=== PATIENT | female | born 1960 | race Hispanic/Latino ===

== ENCOUNTER → 2018-12-18 | Day surgery (SDC) | payer OTHER ==
[~2018-12-18] MED LIST: ALENDRONATE SOD70 MG PO; MIDAZOLAM HCL 2 MG/2 ML VIAL ONE; PROPOFOL IV EMULSION 10 MG/ML 20 ML VIAL ONE; SIMVASTATIN20 MG PO; VITAMIN D1000 UNI1 PO
--- OUTSIDE RECORDS SUMMARY | 2018-12-18 05:59 | XMS REPORT ---
[facility] Address Unknown Phone Unavailable Care Team Providers Care Titrator Name Role Phone Unavailable Unavailable Problems This patient has no known problems. Allergies, Adverse Reactions, Alerts This patient has no known allergies or adverse reactions. Medications This patient has no known medications. Encounters Start Date/Time End Date/Time Encounter Type Admission Type Attending [facility] Facility Care Department Encounter ID 2018-05-06 12:07:20 2018-05-06 12:07:20 Outpatient [facility] [id number] 2018-04-24 00:00:00 2018-04-24 00:00:00 Outpatient [facility] [id number] 2018-04-21 08:40:49 2018-04-21 08:40:49 Outpatient [facility] [id number] 2018-04-21 07:51:04 2018-04-21 07:51:04 Outpatient [facility] [id number] 2018-01-17 07:40:07 2018-01-17 07:40:07 Outpatient [facility] [id number] 2017-12-18 08:45:40 2017-12-18 08:45:40 Outpatient [facility] [id number] 2017-12-18 07:48:03 2017-12-18 07:48:03 Outpatient [facility] [id number] 2017-06-26 08:34:15 2017-06-26 08:34:15 Outpatient [facility] [id number] 2017-05-28 07:47:09 2017-05-28 07:47:09 Outpatient [facility] [id number] 2017-05-17 14:07:25 2017-05-17 14:07:25 Outpatient [facility] [id number] 2017-03-28 09:13:23 2017-03-28 09:13:23 Outpatient [facility] [id number]
--- OUTSIDE RECORDS SUMMARY | 2018-12-18 05:59 | XMS REPORT | Clinical Summary ---
Author Author [facility] Organization [facility] Address Unknown Phone Unavailable Care Team Providers Care Admissions Consultant Name Role Phone Chance Garcia MD PCP Allergies Comments Active Allergy Reactions Severity Noted Date Rash and hives Sulfamethoxazole-Trimetho 11/04/2012 prim dizziness Codeine 04/25/2015 dizziness Gabapentin 04/25/2015 Medications End Date Status Medication Sig Dispensed Refills Start Date Active meclizine (ANTIVERT) 25 Take 1 tablet 30 tablet 1 mg TabIndications: by mouth 3 8 Vertigo times daily as needed (dizziness). Active simvastatin (ZOCOR) 20 mg Take 1 tablet 90 tablet 1 tabletIndications: by mouth at 8 Hyperlipidemia, bedtime unspecified nightly For hyperlipidemia type cholesterol. 12/18/2017 Discontinued simvastatin (ZOCOR) 20 mg Take 1 tablet 90 tablet 1 tabletIndications: by mouth at 7 Hyperlipidemia, bedtime unspecified nightly For hyperlipidemia type cholesterol. 12/18/2017 Discontinued meclizine (ANTIVERT) 25 Take 1 tablet 30 tablet 0 mg TabIndications: by mouth 3 7 Vertigo times daily as needed (dizziness). 04/21/2018 Discontinued simvastatin (ZOCOR) 20 mg Take 1 tablet 90 tablet 1 tabletIndications: by mouth at 8 Hyperlipidemia, bedtime unspecified nightly For hyperlipidemia type cholesterol. 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 Breast lump on left side at 11 o'clock position 11/08/2015 Breast lump on left side at 6 o'clock position 11/08/2015 Vitamin D deficiency 06/28/2015 Menopause 11/06/2010 Vertigo 07/05/2010 Tinnitus 07/05/2010 Uterine leiomyoma - fibroids 01/13/2008 Anemia, unspecified 10/14/2007 Hyperlipidemia Encounters Care Team Description Date Type Specialty Chance Garcia III, MD Hyperlipidemia, unspecified hyperlipidemia type (Primary Dx); Vertigo; Preventative health care 04/21/2018 Office Visit Family Practice Chance Garcia III, MD Preventative health care 01/17/2018 Ancillary Radiology Procedure Francisco Vitale MD Porter, Thomas W III, MD Preventative health care (Primary Dx); Hyperlipidemia, unspecified hyperlipidemia type; Vertigo 12/18/2017 Office Visit Family Practice after 12/17/2017 Immunizations Name Dates Previously Given Next Due Influenza Vaccine 06/28/2015, 06/02/2014, 06/19/2013, 06/27/2010, 05/31/2008 Influenza Vaccine, 06/26/2017 (Deferred: Patient Refused) Seasonal, Injectable Td Tetanus, diphtheria 04/03/2002 Toxoids Vaccine Tdap Tetanus, diphtheria, 06/02/2014 acellular pertussis Vaccine Family History Medical History Relation Name Comments Arthritis Mother Hypertension Mother Pulmonary Mother Relation Name Status Comments Brother Alive x3 Father (Age ?) Mother Alive Social History Date Tobacco Use Types Packs/Day Years Used Never Smoker Smokeless Tobacco: Never Used Tobacco Cessation: Counseling Given: No Alcohol Use Drinks/Week oz/Week Comments No Sex Assigned at Date Recorded Not on file Industry Job Start Date Occupation Not on file Not on file Not on file Travel End Travel History Travel Start No recent travel history available. Last Filed Vital Signs Time Taken Vital Sign Reading 04/21/2018 7:52 AM CDT Blood Pressure 121/78 04/21/2018 7:52 AM CDT Pulse 68 04/21/2018 7:52 AM CDT Temperature 37.1 C (98.7 F) 04/21/2018 7:52 AM CDT Respiratory Rate 16 - Oxygen Saturation - - Inhaled Oxygen - Concentration 04/21/2018 7:52 AM CDT Weight 78.5 kg (173 lb) 04/21/2018 7:52 AM CDT Height 152.4 cm (5') 04/21/2018 7:52 AM CDT Body Mass Index 33.79 Plan of Treatment Health Maintenance Due Date Last Done Comments Breast Cancer Scrn 01/17/2019 01/17/2018, 12/17/2016, 04/25/2015, (Yearly) Additional history exists Colorectal Cancer Scrn 01/17/2019 01/17/2018, 12/17/2016, 09/26/2007, Annual (FIT/FOBT) Age 51 Additional history exists to 76 Cervical Cancer Scrn (3 01/25/2019 01/26/2016, 11/03/2015, 10/24/2012, Yrs) Additional history exists Procedures Comments Procedure Name Priority Date/Time Associated Diagnosis H. PYLORI STOOL AG Routine 05/06/2018 Preventative health care 12:09 PM CDT HEMOGLOBIN A1C Routine 04/21/2018 Preventative health care 8:36 AM CDT GLUCOSE Routine 04/21/2018 Preventative health care 8:36 AM CDT ALT/AST Routine 04/21/2018 Hyperlipidemia, 8:36 AM CDT unspecified hyperlipidemia type LIPID PROFILE Routine 04/21/2018 Hyperlipidemia, 8:36 AM CDT unspecified hyperlipidemia type OCCULT BLOOD ICT Routine 01/17/2018 Preventative health care 4:00 PM CDT MAMMOGRAM BILAT SCREEN Routine 01/17/2018 Preventative health care DIGITAL 8:36 AM CDT HEPATITIS PANEL Routine 12/18/2017 Hyperlipidemia, 8:41 AM CDT unspecified hyperlipidemia type HIV-1/HIV-2 ROUTINE Routine 12/18/2017 Hyperlipidemia, SCREENING 8:41 AM CDT unspecified hyperlipidemia type LIVER PROFILE Routine 12/18/2017 Hyperlipidemia, 8:41 AM CDT unspecified hyperlipidemia type UREA NITROGEN/CREA Routine 12/18/2017 Hyperlipidemia, 8:41 AM CDT unspecified hyperlipidemia type LIPID PROFILE Routine 12/18/2017 Hyperlipidemia, 8:41 AM CDT unspecified hyperlipidemia type CBC/DIFF Routine 12/18/2017 Hyperlipidemia, 8:41 AM CDT unspecified hyperlipidemia type GLUCOSE Routine 12/18/2017 Hyperlipidemia, 8:41 AM CDT unspecified hyperlipidemia type ELECTROLYTES Routine 12/18/2017 Hyperlipidemia, 8:41 AM CDT unspecified hyperlipidemia type after 12/17/2017 Results * H. PYLORI STOOL AG (05/06/2018 12:09 PM CDT) H pylori Ag Negative LABORATORY Stool Reference range: Negative [facility] Specimen Stool Performing Organization Address City/[facility] Phone Number [facility] [address] [place] [address] HUSSEIN 145 * HEMOGLOBIN A1C (04/21/2018 8:36 AM CDT) Hemoglobin A1c 5.8 4.3 - 6.1 % [facility] IMMUNOLOGY Est Average 119.8 mg/dL BT [facility] Gluc IMMUNOLOGY Specimen Blood Performing Organization Address [facility] Phone Number [facility] IMMUNOLOGY * LIPID PROFILE (04/21/2018 8:36 AM CDT) Only the most recent of 2 results within the time period is included. Cholesterol 139 mg/dL BT [facility]IN[facility]ST[facility] Comment: 1 REFERENCE RANGE: Desirable: <200 mg/dL Borderline: 200-240 mg/dL High Risk: >240 mg/dL Triglyceride 98 <150 mg/dL BT [facility]ATION Comment: 1 REFERENCE RANGE: Normal: <150 mg/dL Borderline High: 150-199 mg/dL High: 200-499 mg/dL Very High: >lw=683 mg/dL HDL 46 mg/dL BT [facility] Comment: 1 Increased CHD risk: <40 mg/dL Decreased CHD risk: >60 mg/dL LDL 73 mg/dL BT [facility]ATION Comment: 1 REFERENCE RANGE: Optimal: <100 mg/dL Near Optimal: 100-129 mg/dL Borderline High: 130-159 mg/dL High: 160-189 mg/dL Very High: >xg=867 mg/dL Specimen Blood Performing Organization Address [facility] Phone Number [facility] 1 * GLUCOSE (04/21/2018 8:36 AM CDT) Only the most recent of 2 results within the time period is included. Glucose 88 70 - 110 mg/dL BT MAIN-STATION 1 Specimen Blood Performing Organization Address [facility] Phone Number [facility] 1 * ALT/AST (04/21/2018 8:36 AM CDT) ALT 16 7 - 52 U/L BT MAIN[facility]ATION 1 AST 16 13 - 39 U/L BT MA[facility] 1 Specimen Blood Performing Organization Address City/[facility]/Zipcode Phone Number [facility] 1 * OCCULT BLOOD ICT (01/17/2018 4:00 PM CDT) Occult Blood Negative [facility] ICT Specimen Stool Performing Organization Address City/State/Zipcode Phone Number [facility] * MAMMOGRAM BILAT SCREEN DIGITAL (01/17/2018 8:36 AM CDT) Impressions Performed At IMPRESSION: BENIGN SMS There is no mammographic evidence of malignancy. A 1 year screening mammogram is recommended. This document has been electronically signed. Catalina Pederson M.D. apb/penrad:01/17/2018 09:22:05 Senior Abap Developer: Ms. Charito Bolaños RT(R)(M), [facility] letter sent: Benign Exam Mammogram BI-RADS: 2 Benign G0202 Z12.31 Narrative Performed At #[id number] - MAMMOGRAM BILAT SCREEN DIGITAL SMS BILATERAL DIGITAL SCREENING MAMMOGRAM WITH CAD: 01/17/2018 CLINICAL: Screening for malignancy. Comparison is made to exams dated:12/17/2016 [facility], 11/09/2015, 11/09/2015 [facility], 04/25/2015, 01/29/2014, and 12/19/2012 [facility]. The tissue of both breasts is predominately fatty. Current study was also evaluated with a Computer Aided Detection (CAD) system. There is a benign intramammary node in the right breast. No significant masses, calcifications, or other findings are seen in either breast. There has been no significant interval change. Procedure Note Interface, Rad/Mammog In - 01/17/2018 10:39 AM CDT #[id number] - MAMMOGRAM BILAT SCREEN DIGITAL BILATERAL DIGITAL SCREENING MAMMOGRAM WITH CAD: 01/17/2018 CLINICAL: Screening for malignancy. Comparison is made to exams dated: 12/17/2016 [facility], 11/09/2015, 11/09/2015 [facility] [place], 04/25/2015, 01/29/2014, and 12/19/2012 [facility]. The tissue of both breasts is predominately fatty. Current study was also evaluated with a Computer Aided Detection (CAD) system. There is a benign intramammary node in the right breast. No significant masses, calcifications, or other findings are seen in either breast. There has been no significant interval change. IMPRESSION IMPRESSION: BENIGN There is no mammographic evidence of malignancy. A 1 year screening mammogram is recommended. This document has been electronically signed. Catalina yeboah/ciaran:01/17/2018 09:22:05 Senior Abap Developer: Ms. Charito Bolaños RT(R)(M), [facility] letter sent: Benign Exam Mammogram BI-RADS: 2 Benign G0202 Z12.31 Performing Organization Address City/[facility] Phone Number SMS * HIV-1/HIV-2 ROUTINE SCREENING (12/18/2017 8:41 AM CDT) HIV-1/HIV-2 Negative NEG BT MAIN-STATION 4 Performing Organization Address City/[facility] Phone Number [facility] 4 * ELECTROLYTES (12/18/2017 8:41 AM CDT) Sodium 142 136 - 145 mmol/L BT MAIN-STATION 1 Potassium 4.4 3.5 - 5.1 mmol/L BT [facility]ATION 1 Chloride 104 98 - 107 mmol/L BT [facility] 1 CO2 29 21 - 31 mmol/L BT [facility] 1 Anion Gap 9 BT MAIN[facility]ATION 1 Specimen Blood Performing Organization Address [facility] Phone Number [facility] 1 * LIVER PROFILE (12/18/2017 8:41 AM CDT) T Protein 7.0 6.0 - 8.3 g/dL BT [facility] 1 Albumin 4.6 3.7 - 5.3 g/dL BT [facility] 1 T Bilirubin 0.5 0.2 - 1.2 mg/dL BT MAIN[facility]ATION 1 Alk Phos 72 34 - 104 U/L BT MAIN[facility]ATION 1 AST 19 13 - 39 U/L BT MA[facility]ATION 1 ALT 20 7 - 52 U/L BT [facility] 1 D Bilirubin 0.1 0.0 - 0.2 mg/dL BT MAIN[facility]ATION 1 Specimen Blood Performing Organization Address [facility] Phone Number [facility] 1 * HEPATITIS PANEL (12/18/2017 8:41 AM CDT) HCV IgG Negative NEG BT MAIN-STATION 4 HBsAg Negative NEG BT MAIN-STATION 4 HAV, IgM Negative NEG BT MAIN-STATION 4 HBcAb, IgM Negative NEG BT MAIN-STATION 4 Specimen Blood Performing Organization Address [facility] Phone Number [facility] 4 * CBC/DIFF (12/18/2017 8:41 AM CDT) WBC 6.2 4.5 - 11.0 K/uL BT MAIN-STATION 2 RBC 4.61 4.20 - 5.40 M/uL BT MAIN[facility]STATION 2 Hemoglobin 13.1 12.0 - 16.0 g/dL BT MAIN[facility] 2 Hematocrit 41.2 37.0 - 47.0 % BT MAIN[facility] 2 MCV 89 82 - 92 fL BT MAIN[facility]ATION 2 MCH 28.4 27.0 - 32.0 pg BT MAIN-STATION 2 MCHC 31.8 (L) 32.0 - 36.0 g/dL BT MA[facility] 2 RDW 42.6 36.4 - 46.3 fL BT MA[facility] 2 Platelet 218 150 - 400 K/uL BT MAIN[facility]ATION 2 Mean Platelet 11.6 9.4 - 12.4 fL BT [facility] Volume 2 Percent NRBC 0.0 BT MAIN-STATION 2 Absolute NRBC 0.00 BT MAIN-STATION 2 Neutrophil 64.8 34.0 - 70.0 % BT MAIN[facility] 2 Lymphocyte 28.2 20.0 - 50.0 % BT MAIN[facility]ATION 2 Monocyte 5.2 5.0 - 12.0 % BT MAIN-STATION 2 Eosinophil 1.0 0.7 - 5.0 % BT MAIN-[facility] 2 Basophil 0.6 0.1 - 1.2 % BT MAIN-STATION 2 Pct Immat Gran 0.2 0.0 - 0.5 BT MAIN-STATION 2 Neutrophil, Abs 4.01 1.56 - 6.13 K/uL BT MAIN-STATION 2 Lymphocyte, Abs 1.74 1.18 - 3.74 K/uL BT MAIN-STATION 2 Monocyte, Abs 0.32 0.24 - 0.36 K/uL BT MAIN-STATION 2 Eosinophil, Abs 0.06 0.04 - 0.36 K/uL BT MAIN-STATION 2 Basophil, Abs 0.04 0.01 - 0.08 K/uL BT MAIN-STATION 2 Absol Immat 0.01 0.00 - 0.03 K/uL BT MAIN-STATION Gran 2 Specimen Blood Performing Organization Address City/State/Zipcode Phone Number [facility] 2 * UREA NITROGEN/CREA (12/18/2017 8:41 AM CDT) Urea Nitrogen 9 7 - 25 mg/dL BT [facility] 1 Creatinine 0.80 0.6 - 1.2 mg/dL BT [facility] 1 GFR, Estimated >60 mL/min/1.73 m2 BT MAIN-STATION 1 GFR, Estim, >60 mL/min/1.73 m2 BT [facility]ATION Afr-Am 1 Specimen Other (Specify in Comments) Performing Organization Address City/State/Zipcode Phone Number [facility] 1 after 12/17/2017 Insurance Type Payer Benefit Subscriber ID Effective Phone Address Plan / Dates Group [employer] xxxxxxxxxx 2017-P [phone] [address] [facility] [address] [place] [address]
[2018-12-18 09:30] VITALS: BP 108/82
== END | disposition home or self-care (01) ==
LOC: OR 05:55
PROVIDERS: ATTEND Internal Medicine Gastroenterology
DX: Z12.11 Encounter for screening for malignant neoplasm of colon (principal); Z71.3 Dietary counseling and surveillance; E66.9 Obesity, unspecified; Z88.6 Allergy status to analgesic agent; Z01.810 Encounter for preprocedural cardiovascular examination; Z68.34 Body mass index [BMI] 34.0-34.9, adult
CPT/HCPCS: 45378; 93005; J2250

== ENCOUNTER → 2024-03-05 | Day surgery (SDC) | payer OTHER ==
[~2024-03-05] MED LIST changes: +HYDROCHLOROTHIA25 MG PO; +LIDOCAINE HCL 2% LOCAL INJ 5 ML SDV VIAL INJ ONE; +LIPITOR10 MG PO; +MECLIZINE HCL12.5 MG PO; -MIDAZOLAM HCL 2 MG/2 ML VIAL ONE
[2024-03-05] MEDS: LACTATED RINGER'S 1,000 ML ONE (08:01)
[2024-03-05 09:58] VITALS: TEMP 98.7
[2024-03-05 10:25] VITALS: BP 130/63; PULSE 71; RESP 16; O2SAT 99
== END | disposition home or self-care (01) ==
LOC: OR 07:21
PROVIDERS: ATTEND Internal Medicine Gastroenterology
DX: Z09 Encounter for follow-up examination after completed treatment for conditions other than malignant neoplasm (principal); Z86.010 Personal history of colon polyps; K52.9 Noninfective gastroenteritis and colitis, unspecified; K57.30 Diverticulosis of large intestine without perforation or abscess without bleeding; K62.89 Other specified diseases of anus and rectum; K64.8 Other hemorrhoids; K21.9 Gastro-esophageal reflux disease without esophagitis; I10 Essential (primary) hypertension; E78.5 Hyperlipidemia, unspecified; G89.29 Other chronic pain; Z88.6 Allergy status to analgesic agent; Z01.810 Encounter for preprocedural cardiovascular examination; Z79.899 Other long term (current) drug therapy
CPT/HCPCS: 45380; 83630; 83993; 86140; 87045; 87177; 87324; 87328; 87449; 93005; J2001; J2704; J7121; 45378